=== PATIENT | male | born 1930 | race African-American/Black ===

== ENCOUNTER 2017-03-11 12:35 | Inpatient (IN) | payer MEDICARE ==
[2017-03-11] VITALS (7 sets, daily range): BP systolic 107–137; BP diastolic 60–71; PULSE 58–91; RESP 13–19; TEMP 97.8–98.2; O2SAT 99–100
[~2017-03-11] VITALS: Ht 181.6 cm; Wt 78.0 kg
[~2017-03-11 12:35] MED LIST: ASPI81TA21 PO; ATOR40TA49 PO; CLOP75 PO; FERR325T PO; MAXZ25 PO; OMEP20TA39 PO; TAB-TAB PO
--- NOTE | 2017-03-11 12:46 | PD ---
Physical Exam Date Seen by Provider: Mar 11, 2017 Time Seen by Provider: 12:44 Data Data Last Documented VS Vital Signs Date Time Temp Pulse Resp B/P Pulse Ox O2 Delivery O2 Flow Rate FiO2 03/11/17 12:37 97.9 91 15 137/65 100 MDM Supervised Visit with AARON: No Narrative Course 86 YO M with complaint of anemia. Patient had labs drawn yesterday with [facility]. Patient unsure if he takes blood thinners. Denies dark stool. Vitals reviewed. Patient seen in triage. Awaiting bed placement. Mignon Bullock Mar 11, 2017 12:46
--- NOTE | 2017-03-11 12:54 | PD ---
HPI . Low hemoglobin Chief Complaint: Abnormal Results Time Seen by Provider: 12:50 Travel History International Travel<30 days: No Contact w/Intl Traveler<30days: No Traveled to known affect area: No History of Present Illness HPI 86-year-old male with history of hypertension, hyperlipidemia and some cardiac history that is unclear to him here after he was called by one of his doctors and told to come to the emergency department for low hemoglobin. Patient says that he was called and told his hemoglobin was 5 and was told to come to the emergency department. He denies any melena or hematochezia. He denies any acute episodes of shortness of breath or fatigue. Patient said he had a long- standing history of intermittent shortness of breath for greater than 6 months, however has not worsened. He thinks he may take some blood thinners, but is uncertain of all of the names of his medications. He is a poor historian and has some difficulty telling me his medical history. PCP Dr. [facility] Past Medical History Hx Anticoagulant Therapy: Yes Cardiovascular Problems: Yes Hypertension: Yes Social History Alcohol Use: No Tobacco Use: No Allergies-Medications (Allergen,Severity, Reaction): Coded Allergies: No Known Allergies (Unverified , 03/11/17) Reported Meds & Prescriptions Reported Meds & Active Scripts Active Reported Multiple Vitamin 1 Tab 1 Tab PO DAILY Triamterene-Hydrochlorothiazide 37.5-25 Mg Tab 1 Tab PO DAILY Atorvastatin (Atorvastatin Calcium) 40 Mg Tab 40 Mg PO HS Plavix (Clopidogrel Bisulfate) 75 Mg Tab 75 Mg PO DAILY Aspirin Adult Low Strength (Aspirin) 81 Mg Tabdr 81 Mg PO DAILY Lansoprazole 30 Mg Capdr 30 Mg PO DAILY Review of Systems ROS Limitations: Poor Historian General / Constitutional: No: Fever Eyes: No: Visual changes HENT: No: Headaches Cardiovascular: No: Chest Pain or Discomfort Respiratory: No: Shortness of Breath Gastrointestinal: No: Abdominal Pain Genitourinary: No: Dysuria Musculoskeletal: No: Pain Skin: No Rash Neurologic: No: Weakness Psychiatric: No: Depression Endocrine: No: Polydipsia Hematologic/Lymphatic: No: Easy Bruising Physical Exam Narrative GENERAL: AAO x 3, no acute distress, Well-nourished, well-developed patient. SKIN: Warm and dry. No visible rashes or bruising. Slight pallor and pale conjunctiva HEAD: Normocephalic and atraumatic. EYES: No scleral icterus. No injection or drainage. EOM intact, PERRLA ENT: No nasal drainage noted. Mucous membranes pink. Airway patent. NECK: Supple, trachea midline. No JVD. CARDIOVASCULAR: Regular rate and rhythm without murmurs, gallops, or rubs. RESPIRATORY: Breath sounds equal bilaterally. No accessory muscle use. No rhonchi or rales. GASTROINTESTINAL: Abdomen soft, non-tender, nondistended. RECTAL: Lorraine INFANTE present, no gross abn on inspection, + guaiac EXTREMITIES: No cyanosis or edema. BACK: Nontender without obvious deformity. No CVA tenderness. NEURO: CN II-12 intact, title abstractor strength normal b/l, UE and LE 5/5, no focal deficits PSYCH: AAO x 3, normal affect. Data Data Last Documented VS Vital Signs Date Time Temp Pulse Resp B/P Pulse Ox O2 Delivery O2 Flow Rate FiO2 03/11/17 13:04 100 Room Air 03/11/17 12:37 97.9 91 15 137/65 Orders Complete Blood Count With Diff (03/11/17 12:55) Comprehensive Metabolic Panel (03/11/17 12:55) Prothrombin Time / Inr (Pt) (03/11/17 12:55) Act Partial Throm Time (Ptt) (03/11/17 12:55) Ecg Monitoring (03/11/17 12:55) Iv Access Insert/Monitor (03/11/17 12:55) Oximetry (03/11/17 12:55) Sodium Chloride 0.9% Flush (Ns Flush) (03/11/17 13:00) Type And Screen (03/11/17 13:45) Red Blood Cells (Rbc) (03/11/17 13:45) Blood Product Administration .UPON TRANSFUSION (03/11/17 13:45) Sodium Chlor 0.9% 250 Ml Inj (Ns 250 Ml (03/11/17 13:45) Admit To Inpatient (03/11/17 ) Code Status (03/11/17 14:15) Vital Signs (Adult) Q4H (03/11/17 14:15) Activity Oob With Assistance (03/11/17 14:15) Call Or Contact Centre Team Leader / Telemetry .CONTINUOUS (03/11/17 14:15) Diet Heart Healthy (03/11/17 Dinner) Sodium Chloride 0.9% Flush (Ns Flush) (03/11/17 14:15) Sodium Chloride 0.9% Flush (Ns Flush) (03/11/17 21:00) Acetaminophen (Tylenol) (03/11/17 15:00) Ondansetron Inj (Zofran Inj) (03/11/17 15:00) Basic Metabolic Panel (Bmp) (03/12/17 06:00) Chest, Single Ap (03/11/17 14:15) Electrocardiogram (03/11/17 14:15) Resp Oxygen Lauri C Titrat 1-4 L (03/11/17 ) Pt Request For Service (03/11/17 14:15) Scd Bilateral/Knee High DEYVI.BID (03/11/17 14:15) Naloxone Inj (Narcan Inj) (03/11/17 14:15) Magnesium Hydroxide Liq (Milk Of Magnesi (03/11/17 15:00) Inpatient Certification (03/11/17 ) Complete Blood Count With Diff (03/11/17 14:17) Complete Blood Count With Diff (03/12/17 14:17) Complete Blood Count With Diff (03/13/17 14:17) Complete Blood Count With Diff (03/14/17 14:17) Atorvastatin (Lipitor) (03/11/17 21:00) Triamterene-Hctz 37.5-25 Mg (Maxzide 37. (03/12/17 09:00) Multivitamin (Theragran) (03/12/17 09:00) Pantoprazole Inj (Protonix Inj) (03/11/17 15:00) Consult Gastroenterology (03/11/17 ) Admit Order (Ed Use Only) (03/11/17 14:32) Labs Laboratory Tests Test 03/11/17 13:04 White Blood Count 4.3 TH/MM3 Red Blood Count 3.01 MIL/MM3 Hemoglobin 5.6 GM/DL Hematocrit 19.5 % Mean Corpuscular Volume 64.8 FL Mean Corpuscular Hemoglobin 18.6 PG Mean Corpuscular Hemoglobin 28.6 % Concent Red Cell Distribution Width 19.6 % Platelet Count 316 TH/MM3 Mean Platelet Volume 6.9 FL Neutrophils (%) (Auto) 65.9 % Lymphocytes (%) (Auto) 20.8 % Monocytes (%) (Auto) 9.9 % Eosinophils (%) (Auto) 2.8 % Basophils (%) (Auto) 0.6 % Neutrophils # (Auto) 2.9 TH/MM3 Lymphocytes # (Auto) 0.9 TH/MM3 Monocytes # (Auto) 0.4 TH/MM3 Eosinophils # (Auto) 0.1 TH/MM3 Basophils # (Auto) 0.0 TH/MM3 CBC Comment DIFF FINAL Differential Comment Prothrombin Time 11.6 SEC Prothromb Time International 1.0 RATIO Ratio Activated Partial 26.6 SEC Thromboplast Time Sodium Level 137 MEQ/L Potassium Level 3.7 MEQ/L Chloride Level 105 MEQ/L Carbon Dioxide Level 25.0 MEQ/L Anion Gap 7 MEQ/L Blood Urea Nitrogen 14 MG/DL Creatinine 0.97 MG/DL Estimat Glomerular Filtration 89 ML/MIN Rate Random Glucose 113 MG/DL Calcium Level 8.3 MG/DL Total Bilirubin 0.4 MG/DL Aspartate Amino Transf 16 U/L (AST/SGOT) Alanine Aminotransferase 19 U/L (ALT/SGPT) Alkaline Phosphatase 77 U/L Total Protein 7.5 GM/DL Albumin 3.5 GM/DL [facility] Medical Decision Making Medical Screen Exam Complete: Yes Emergency Medical Condition: Yes Medical Record Reviewed: Yes Differential Diagnosis Anemia, upper GI bleed, lower GI bleed, malignancy Narrative Course 86-year-old male here after being told by one of his doctors that he has a low hemoglobin. Examination was unremarkable except for slight pallor on exam, pale conjunctiva as well as positive bedside guaiac. Laboratory Tests Test 03/11/17 13:04 White Blood Count 4.3 TH/MM3 Red Blood Count 3.01 MIL/MM3 Hemoglobin 5.6 GM/DL Hematocrit 19.5 % Mean Corpuscular Volume 64.8 FL Mean Corpuscular Hemoglobin 18.6 PG Mean Corpuscular Hemoglobin 28.6 % Concent Red Cell Distribution Width 19.6 % Platelet Count 316 TH/MM3 Mean Platelet Volume 6.9 FL Neutrophils (%) (Auto) 65.9 % Lymphocytes (%) (Auto) 20.8 % Monocytes (%) (Auto) 9.9 % Eosinophils (%) (Auto) 2.8 % Basophils (%) (Auto) 0.6 % Neutrophils # (Auto) 2.9 TH/MM3 Lymphocytes # (Auto) 0.9 TH/MM3 Monocytes # (Auto) 0.4 TH/MM3 Eosinophils # (Auto) 0.1 TH/MM3 Basophils # (Auto) 0.0 TH/MM3 CBC Comment DIFF FINAL Differential Comment Prothrombin Time 11.6 SEC Prothromb Time International 1.0 RATIO Ratio Activated Partial 26.6 SEC Thromboplast Time Sodium Level 137 MEQ/L Potassium Level 3.7 MEQ/L Chloride Level 105 MEQ/L Carbon Dioxide Level 25.0 MEQ/L Anion Gap 7 MEQ/L Blood Urea Nitrogen 14 MG/DL Creatinine 0.97 MG/DL Estimat Glomerular Filtration 89 ML/MIN Rate Random Glucose 113 MG/DL Calcium Level 8.3 MG/DL Total Bilirubin 0.4 MG/DL Aspartate Amino Transf 16 U/L (AST/SGOT) Alanine Aminotransferase 19 U/L (ALT/SGPT) Alkaline Phosphatase 77 U/L Total Protein 7.5 GM/DL Albumin 3.5 GM/DL Hemoglobin 5.6. Patient appears to have a GI bleed. Packed red blood cells have been ordered. Will transfuse with 2 units here in the emergency department and hold 2 units. I've requested a call back for admission. I discussed the results with the patient and the need for admission. Patient was agreeable to recommendations. Patient tells me that he is overdue for colonoscopy and was schedules for one within the next several weeks. Unfortunately he does not recall the name of any of his medical providers other than his primary care provider. Case has been discussed with Dr. Wilson, who has also seen the patient. 1431: case discussed with Dr. Nj. He will resume care of this patient. Diagnosis Primary Impression: Anemia Qualified Code: D64.9 - Anemia, unspecified type Additional Impression: GI bleed Qualified Code: K92.2 - Gastrointestinal hemorrhage, unspecified gastrointestinal hemorrhage type Admitting Information Admitting Physician Requests: Admit Condition: Stable Mena Walton Mar 11, 2017 12:54
[2017-03-11 12:56] LABS: MEAN CORPUSCULAR HGB CONC 28.6 % (32.0-36.0)
[2017-03-11] MEDS ORDERED: SODIUM CHLORIDE 0.9% FLUSH 10 ML FLUSH IVF PRN (13:00)
[2017-03-11] MEDS ORDERED: ASPI1TAB91 PO (13:10)
[2017-03-11] MEDS ORDERED: TRIA37.5 PO (13:10)
[2017-03-11] MEDS ORDERED: LANS30CA PO (13:10)
[2017-03-11] MEDS ORDERED: PLAV75TA29 PO (13:10)
[2017-03-11] MEDS ORDERED: ATOR40TA16 PO (13:10)
[2017-03-11] MEDS ORDERED: MULTTAB67 PO (13:11)
[2017-03-11 13:34] LABS: AUTOMATED NEUTROPHIL # 2.9 TH/MM3 (1.8-7.7); BASOPHIL % 0.6 % (0.0-2.0); EOSINOPHIL # 0.1 TH/MM3 (0-0.4); EOSINOPHIL % 2.8 % (0.0-4.0); LYMPH % 20.8 % (9.0-44.0); LYMPHOCYTE # 0.9 TH/MM3 (1.0-4.8); MEAN CELL VOLUME 64.8 FL (80.0-100.0); MEAN CORPUSCULAR HEMOGLOBIN 18.6 PG (27.0-34.0); MONO % 9.9 % (0.0-8.0); NEUT % 65.9 % (16.0-70.0); PLATELET COUNT 316 TH/MM3 (150-450); RED BLOOD COUNT 3.01 MIL/MM3 (4.50-5.90); RED CELL DISTRIBUTION WIDTH 19.6 % (11.6-17.2); WHITE BLOOD COUNT 4.3 TH/MM3 (4.0-11.0)
[2017-03-11 13:39] LABS: HEMO FLAGS DIFF FINAL
[2017-03-11 13:42] LABS: HEMATOCRIT 19.5 % (39.0-51.0)
[2017-03-11 13:45] LABS: APTT (PATIENT) 26.6 SEC (24.3-30.1); PROTHROMBIN TIME - PATIENT 11.6 SEC (9.8-11.6)
[2017-03-11] MEDS ORDERED: SODIUM CHLOR 0.9% 250 ML INJ 250 ML IV ONE (13:45)
[2017-03-11 13:49] LABS: ANION GAP 7 MEQ/L (5-15); AST (GOT) 16 U/L (15-37); BLOOD UREA NITROGEN 14 MG/DL (7-18); CHLORIDE 105 MEQ/L (98-107); GLOMERULAR FILTRATION RATE 89 ML/MIN (>89); POTASSIUM 3.7 MEQ/L (3.5-5.1); SODIUM (NA) 137 MEQ/L (136-145)
[2017-03-11 13:54] LABS: ALKALINE PHOSPHATASE 77 U/L (45-117); ALT (GPT) 19 U/L (12-78); TOTAL BILIRUBIN ADULT 0.4 MG/DL (0.2-1.0)
[2017-03-11] MEDS ORDERED: SODIUM CHLORIDE 0.9% FLUSH 10 ML FLUSH IV FLUSH PRN (14:15)
[2017-03-11] MEDS ORDERED: NALOXONE HCL 0.4 MG/ML AMP IV PRN (14:15)
[2017-03-11 14:19] LABS: MEAN CORPUSCULAR HGB CONC 28.9 % (32.0-36.0)
--- NOTE | 2017-03-11 14:41 | PD ---
Data Data Last Documented VS Vital Signs Date Time Temp Pulse Resp B/P Pulse Ox O2 Delivery O2 Flow Rate FiO2 03/11/17 13:04 100 Room Air 03/11/17 12:37 97.9 91 15 137/65 Orders Complete Blood Count With Diff (03/11/17 12:55) Comprehensive Metabolic Panel (03/11/17 12:55) Prothrombin Time / Inr (Pt) (03/11/17 12:55) Act Partial Throm Time (Ptt) (03/11/17 12:55) Ecg Monitoring (03/11/17 12:55) Iv Access Insert/Monitor (03/11/17 12:55) Oximetry (03/11/17 12:55) Sodium Chloride 0.9% Flush (Ns Flush) (03/11/17 13:00) Type And Screen (03/11/17 13:45) Red Blood Cells (Rbc) (03/11/17 13:45) Blood Product Administration .UPON TRANSFUSION (03/11/17 13:45) Sodium Chlor 0.9% 250 Ml Inj (Ns 250 Ml (03/11/17 13:45) Admit To Inpatient (03/11/17 ) Code Status (03/11/17 14:15) Vital Signs (Adult) Q4H (03/11/17 14:15) Activity Oob With Assistance (03/11/17 14:15) Marketing Director Assisted Living / Telemetry .CONTINUOUS (03/11/17 14:15) Diet Heart Healthy (03/11/17 Dinner) Sodium Chloride 0.9% Flush (Ns Flush) (03/11/17 14:15) Sodium Chloride 0.9% Flush (Ns Flush) (03/11/17 21:00) Acetaminophen (Tylenol) (03/11/17 15:00) Ondansetron Inj (Zofran Inj) (03/11/17 15:00) Basic Metabolic Panel (Bmp) (03/12/17 06:00) Chest, Single Ap (03/11/17 14:15) Electrocardiogram (03/11/17 14:15) Resp Oxygen Lauri C Titrat 1-4 L (03/11/17 ) Pt Request For Service (03/11/17 14:15) Scd Bilateral/Knee High DEYVI.BID (03/11/17 14:15) Naloxone Inj (Narcan Inj) (03/11/17 14:15) Magnesium Hydroxide Liq (Milk Of Magnesi (03/11/17 15:00) Inpatient Certification (03/11/17 ) Complete Blood Count With Diff (03/11/17 14:17) Complete Blood Count With Diff (03/12/17 14:17) Complete Blood Count With Diff (03/13/17 14:17) Complete Blood Count With Diff (03/14/17 14:17) Atorvastatin (Lipitor) (03/11/17 21:00) Triamterene-Hctz 37.5-25 Mg (Maxzide 37. (03/12/17 09:00) Multivitamin (Theragran) (03/12/17 09:00) Pantoprazole Inj (Protonix Inj) (03/11/17 15:00) Consult Gastroenterology (03/11/17 ) Admit Order (Ed Use Only) (03/11/17 14:32) Labs Laboratory Tests Test 03/11/17 13:04 White Blood Count 4.3 TH/MM3 Red Blood Count 3.01 MIL/MM3 Hemoglobin 5.6 GM/DL Hematocrit 19.5 % Mean Corpuscular Volume 64.8 FL Mean Corpuscular Hemoglobin 18.6 PG Mean Corpuscular Hemoglobin 28.6 % Concent Red Cell Distribution Width 19.6 % Platelet Count 316 TH/MM3 Mean Platelet Volume 6.9 FL Neutrophils (%) (Auto) 65.9 % Lymphocytes (%) (Auto) 20.8 % Monocytes (%) (Auto) 9.9 % Eosinophils (%) (Auto) 2.8 % Basophils (%) (Auto) 0.6 % Neutrophils # (Auto) 2.9 TH/MM3 Lymphocytes # (Auto) 0.9 TH/MM3 Monocytes # (Auto) 0.4 TH/MM3 Eosinophils # (Auto) 0.1 TH/MM3 Basophils # (Auto) 0.0 TH/MM3 CBC Comment DIFF FINAL Differential Comment Prothrombin Time 11.6 SEC Prothromb Time International 1.0 RATIO Ratio Activated Partial 26.6 SEC Thromboplast Time Sodium Level 137 MEQ/L Potassium Level 3.7 MEQ/L Chloride Level 105 MEQ/L Carbon Dioxide Level 25.0 MEQ/L Anion Gap 7 MEQ/L Blood Urea Nitrogen 14 MG/DL Creatinine 0.97 MG/DL Estimat Glomerular Filtration 89 ML/MIN Rate Random Glucose 113 MG/DL Calcium Level 8.3 MG/DL Total Bilirubin 0.4 MG/DL Aspartate Amino Transf 16 U/L (AST/SGOT) Alanine Aminotransferase 19 U/L (ALT/SGPT) Alkaline Phosphatase 77 U/L Total Protein 7.5 GM/DL Albumin 3.5 GM/DL [facility] Supervised Visit with AARON: Yes Narrative Course The history, exam, and medical decision-making in the associated mid-level provider note were completed with my assistance. I reviewed and agree with the findings presented. I attest that I had a [id number] encounter with the patient on the same day, and personally performed and documented my assessment and findings in the medical record. *My assessment and Findings: Send 86-year-old man who presents emergent part referred from his primary doctor for abnormal labs. He was told he had a hemoglobin of 5. He got routine labs done yesterday. He's been having a little bit of lightheadedness and dyspnea on exertion. He has not noticed any blood in his stool. He had colon cancer couple years ago and had some anemia that time her car transfusion but no recent trouble. He thinks he last had labs polyuria or so ago. He looks pale. He otherwise feels fine. His a benign exam. He is guaiac positive. Patient's hemoglobin is in the fives. He'll be admitted for transfusion and further evaluation. Diagnosis Primary Impression: Anemia Qualified Code: D64.9 - Anemia, unspecified type Additional Impression: GI bleed Qualified Code: K92.2 - Gastrointestinal hemorrhage, unspecified gastrointestinal hemorrhage type Condition: Wiley Young MD Mar 11, 2017 14:41
--- NOTE | 2017-03-11 14:54 | RADRPT ---
EXAM DATE/TIME: 03/11/2017 14:17 [place] COMPARISON: No previous studies available for comparison. INDICATIONS : Shortness of breath. Abnormal blood work. MEDICAL HISTORY : Hypertension. SURGICAL HISTORY : None. ENCOUNTER: Initial ACUITY: 2 days PAIN SCORE: 0/10 LOCATION: Bilateral chest FINDINGS: No infiltrate, effusion or pneumothorax demonstrated. Heart size normal. Thoracic aorta is tortuous. CONCLUSION: No acute cardiopulmonary disease demonstrated. Tortuous thoracic aorta. Michael Henriquez MD on March 11, 2017 at 14:53 Board Certified Radiologist. This report was verified electronically.
[2017-03-11] MEDS ORDERED: MAGNESIUM HYDROXIDE SUSP 30 ML CUP PO PRN (15:00)
[2017-03-11] MEDS ORDERED: ONDANSETRON HCL 4 MG/2 ML VIAL IVP PRN (15:00)
[2017-03-11] MEDS ORDERED: ACETAMINOPHEN 325 MG TAB PO PRN (15:00)
[2017-03-11] MEDS: PANTOPRAZOLE SODIUM 40 MG VIAL IV PUSH SCH (15:41)
--- NOTE | 2017-03-11 15:49 | PD.CONS ---
HPI History of Present Illness This is a pleasant 86 year old AA male with history of hypertension, hyperlipidemia, PVD who was sent here for abnormal out patient labs, hgb of 5. He denies any GI issues including vomiting, hematemesis, abdomen pain, GERD, diarrhea, constipation, change in bowels, melena or hematochezia. He reports shortness of breath and fatigue for a while. Patient is poor historian and not sure of name of home medications. Reviewing his home meds, patient is on Plavix , and ASA. States he had blood transfusion 4 yrs ago. Last colonoscopy was > than 5 yrs ago. Upon arrival, hgb 5.6. 4 units of blood ordered. This is significant drop compared to hgb of 12 last year. He tells me he was scheduled next month to see Dr. Reich for possible colonoscopy (María Merchant) PFSH Past Medical History HTN PVD hyperlipidemia Past Surgical History cardiac cath (María Merchant) Coded Allergies: No Known Allergies (Unverified , 03/11/17) Medications Current Medications Medications (Trade) Dose Ordered Sig/Flor Route Start Time Stop Time Status Last Admin Sodium Chloride 2 ml 2 ml UNSCH PRN IVF 03/11/17 13:00 (NS 250 ml Inj) 250 ml @ 15 mls/hr ONCE ONCE IV 03/11/17 13:45 03/12/17 06:24 03/11/17 15:04 (NS Flush) 2 ml UNSCH PRN IV FLUSH 03/11/17 14:15 (NS Flush) 2 ml BID IV FLUSH 03/11/17 21:00 (Tylenol) 650 mg Q4H PRN PO 03/11/17 15:00 (Zofran Inj) 4 mg Q6H PRN IVP 03/11/17 15:00 (Narcan Inj) 0.4 mg UNSCH PRN IV 03/11/17 14:15 (Milk Of Magnesia Liq) 30 ml Q12HR PRN PO 03/11/17 15:00 (Lipitor) 40 mg HS PO 03/11/17 21:00 (Maxzide 37.5-25 Mg) 1 tab DAILY PO 03/12/17 09:00 (Theragran) 1 tab DAILY PO 03/12/17 09:00 (Protonix Inj) 40 mg Q24H IV PUSH 03/11/17 15:00 Family History No family hx of colon cancer Social History No alcohol No smoking No illicit drug use (María Merchant) Review of Systems Constitutional: COMPLAINS OF: Fatigue Endocrine: DENIES: Polyuria Eyes: DENIES: Double Vision Ears, nose, mouth, throat: DENIES: Hoarseness Respiratory: COMPLAINS OF: Shortness of breath Cardiovascular: DENIES: Claudication Gastrointestinal: DENIES: Abdominal pain, Black stools, Bloody stools, Constipation, Diarrhea, Nausea, Vomiting, Difficulty Swallowing, Anorexia, Swelling of Abdomen, Heartburn, Hematemesis Genitourinary: DENIES: Hematuria Musculoskeletal: DENIES: Neck pain Integumentary: DENIES: Jaundice Hematologic/lymphatic: DENIES: Bruising Immunologic/allergic: DENIES: Eczema Neurologic: DENIES: Abnormal gait Psychiatric: DENIES: Anxiety (María Merchant) GI Exam Vitals I&O Vital Signs Date Time Temp Pulse Resp B/P Pulse Ox O2 Delivery O2 Flow Rate FiO2 03/11/17 15:24 98.1 59 16 133/63 100 Room Air 03/11/17 15:05 97.9 61 13 117/64 100 Room Air 03/11/17 13:04 100 Room Air 03/11/17 12:37 97.9 91 15 137/65 100 Imaging Last Impressions Chest X-Ray 03/11/17 1415 Signed Impressions: Service Date/Time: Saturday, March 11, 2017 14:17 - CONCLUSION: No acute cardiopulmonary disease demonstrated. Tortuous thoracic aorta. Michael Henriquez MD Laboratory Test 03/11/17 03/11/17 13:04 13:50 White Blood Count 4.3 TH/MM3 Red Blood Count 3.01 MIL/MM3 Hemoglobin 5.6 GM/DL Hematocrit 19.5 % Mean Corpuscular Volume 64.8 FL Mean Corpuscular Hemoglobin 18.6 PG Mean Corpuscular Hemoglobin 28.6 % Concent Red Cell Distribution Width 19.6 % Platelet Count 316 TH/MM3 Mean Platelet Volume 6.9 FL Neutrophils (%) (Auto) 65.9 % Lymphocytes (%) (Auto) 20.8 % Monocytes (%) (Auto) 9.9 % Eosinophils (%) (Auto) 2.8 % Basophils (%) (Auto) 0.6 % Neutrophils # (Auto) 2.9 TH/MM3 Lymphocytes # (Auto) 0.9 TH/MM3 Monocytes # (Auto) 0.4 TH/MM3 Eosinophils # (Auto) 0.1 TH/MM3 Basophils # (Auto) 0.0 TH/MM3 CBC Comment DIFF FINAL Differential Comment Prothrombin Time 11.6 SEC Prothromb Time International 1.0 RATIO Ratio Activated Partial 26.6 SEC Thromboplast Time Sodium Level 137 MEQ/L Potassium Level 3.7 MEQ/L Chloride Level 105 MEQ/L Carbon Dioxide Level 25.0 MEQ/L Anion Gap 7 MEQ/L Blood Urea Nitrogen 14 MG/DL Creatinine 0.97 MG/DL Estimat Glomerular Filtration 89 ML/MIN Rate Random Glucose 113 MG/DL Calcium Level 8.3 MG/DL Total Bilirubin 0.4 MG/DL Aspartate Amino Transf 16 U/L (AST/SGOT) Alanine Aminotransferase 19 U/L (ALT/SGPT) Alkaline Phosphatase 77 U/L Total Protein 7.5 GM/DL Albumin 3.5 GM/DL Blood Type O POSITIVE Antibody Screen NEGATIVE Crossmatch Leukocyte-Reduced Red Blood Cells Blood Bank Comment Physical Examination HEENT: normocephalic; atraumatic; no jaundice. NECK: Neck is supple, no JVD, no lymphadenopathy. CHEST: Chest is clear to auscultation and percussion. CARDIAC: Regular rate and rhythm with no murmur gallop or rubs. ABDOMEN: Soft, nondistended, nontender; no hepatosplenomegaly; bowel sounds are present in all four quadrants. EXTREMITIES: No clubbing, cyanosis, or edema. SKIN: Normal; no rash; no jaundice. COPPER PLATER: No focal deficits; alert and oriented times three. (María Merchant) Assessment and Plan Plan - Profound anemia, microcytic/hypochromic, hgb 5 - He denies any GI issues including vomiting, hematemesis, abdomen pain, GERD, diarrhea, constipation, change in bowels, melena or hematochezia. He reports shortness of breath and fatigue for a while. patient is on Plavix, and ASA. States he had blood transfusion 4 yrs ago. Last colonoscopy was > than 5 yrs ago. Upon arrival, hgb 5.6. 4 units of blood ordered, repeat labs pending. This is significant drop compared to hgb of 12 last year. He tells me he was scheduled next month to see Dr. Reich for possible colonoscopy. PPI - PVD, HTN per attending - anticoagulation use- Plavix on hold Plan: - Heart healthy diet - EGD/colonoscopy on Monday - Clear liquids tomorrow - Golytely tomorrow - Monitor hh - Transfuse as needed - Cont. PPI - Cont. to hold Plavix - Supportive care - Patient seen and examined by Dr. Reich and myself and this note is written on her behalf. (María Merchant) Physician Comments seen, examined agree with above if active bleeding, endoscopy on emergency (Martha Reich MD) María Merchant Mar 11, 2017 15:48 Martha Reich MD Mar 11, 2017 16:13
[2017-03-11 15:55] LABS: AUTOMATED NEUTROPHIL # 2.4 TH/MM3 (1.8-7.7); BASOPHIL % 0.7 % (0.0-2.0); EOSINOPHIL # 0.1 TH/MM3 (0-0.4); EOSINOPHIL % 3.3 % (0.0-4.0); LYMPH % 26.2 % (9.0-44.0); LYMPHOCYTE # 1.1 TH/MM3 (1.0-4.8); MEAN CELL VOLUME 64.7 FL (80.0-100.0); MEAN CORPUSCULAR HEMOGLOBIN 18.7 PG (27.0-34.0); MONO % 11.4 % (0.0-8.0); NEUT % 58.4 % (16.0-70.0); PLATELET COUNT 293 TH/MM3 (150-450); RED BLOOD COUNT 2.76 MIL/MM3 (4.50-5.90); RED CELL DISTRIBUTION WIDTH 19.6 % (11.6-17.2)
[2017-03-11 15:59] LABS: HEMO FLAGS DIFF FINAL
[2017-03-11 16:02] LABS: HEMATOCRIT 17.8 % (39.0-51.0)
--- NOTE | 2017-03-11 17:16 | HHI.HP ---
HPI Service [facility] Hospitalists Primary Care Physician Ajith Shields MD Admission Diagnosis anemia/GI bleed Travel History International Travel<30 Days: No Contact w/Intl Traveler <30 Da: No Traveled to Known Affected Are: No Past Family Social History Allergies: Coded Allergies: No Known Allergies (Unverified , 03/11/17) Physical Exam Vital Signs Vital Signs Date Time Temp Pulse Resp B/P Pulse Ox O2 Delivery O2 Flow Rate FiO2 03/11/17 16:45 97.8 58 19 132/60 100 03/11/17 15:24 98.1 59 16 133/63 100 Room Air 03/11/17 15:05 97.9 61 13 117/64 100 Room Air 03/11/17 13:04 100 Room Air 03/11/17 12:37 97.9 91 15 137/65 100 Physical Exam GENERAL: This is a well-nourished, well-developed patient, in no apparent distress. SKIN: No rashes, ecchymoses or lesions. Cool and dry. HEAD: Atraumatic. Normocephalic. No temporal or scalp tenderness. EYES: Pupils equal round and reactive. Extraocular motions intact. No scleral icterus. No injection or drainage. ENT: Nose without bleeding, purulent drainage or septal hematoma. Throat without erythema, tonsillar hypertrophy or exudate. Uvula midline. Airway patent. NECK: Trachea midline. No JVD or lymphadenopathy. Supple, nontender, no meningeal signs. CARDIOVASCULAR: Regular rate and rhythm without murmurs, gallops, or rubs. RESPIRATORY: Clear to auscultation. Breath sounds equal bilaterally. No wheezes , rales, or rhonchi. GASTROINTESTINAL: Abdomen soft, non-tender, nondistended. No hepato-splenomegaly , or palpable masses. No guarding. MUSCULOSKELETAL: Extremities without clubbing, cyanosis, or edema. No joint tenderness, effusion, or edema noted. No calf tenderness. Negative Homans sign bilaterally. NEUROLOGICAL: Awake and alert. Cranial nerves II through XII intact. Motor and sensory grossly within normal limits. Five out of 5 muscle strength in all muscle groups. Normal speech. Laboratory Laboratory Tests Test 03/11/17 03/11/17 03/11/17 13:04 13:50 15:05 White Blood Count 4.3 4.0 Red Blood Count 3.01 2.76 Hemoglobin 5.6 5.1 Hematocrit 19.5 17.8 Mean Corpuscular Volume 64.8 64.7 Mean Corpuscular Hemoglobin 18.6 18.7 Mean Corpuscular Hemoglobin 28.6 28.9 Concent Red Cell Distribution Width 19.6 19.6 Platelet Count 316 293 Mean Platelet Volume 6.9 6.9 Neutrophils (%) (Auto) 65.9 58.4 Lymphocytes (%) (Auto) 20.8 26.2 Monocytes (%) (Auto) 9.9 11.4 Eosinophils (%) (Auto) 2.8 3.3 Basophils (%) (Auto) 0.6 0.7 Neutrophils # (Auto) 2.9 2.4 Lymphocytes # (Auto) 0.9 1.1 Monocytes # (Auto) 0.4 0.5 Eosinophils # (Auto) 0.1 0.1 Basophils # (Auto) 0.0 0.0 CBC Comment DIFF FINAL DIFF FINAL Differential Comment Prothrombin Time 11.6 Prothromb Time International 1.0 Ratio Activated Partial 26.6 Thromboplast Time Sodium Level 137 Potassium Level 3.7 Chloride Level 105 Carbon Dioxide Level 25.0 Anion Gap 7 Blood Urea Nitrogen 14 Creatinine 0.97 Estimat Glomerular Filtration 89 Rate Random Glucose 113 Calcium Level 8.3 Total Bilirubin 0.4 Aspartate Amino Transf 16 (AST/SGOT) Alanine Aminotransferase 19 (ALT/SGPT) Alkaline Phosphatase 77 Total Protein 7.5 Albumin 3.5 Blood Type O POSITIVE Antibody Screen NEGATIVE Crossmatch Leukocyte-Reduced Red Blood Cells Blood Bank Comment Result Diagram: 03/11/17 1505 03/11/17 1304 Physician Certification Order for Inpatient Services The services are ordered in accordance with Medicare regulations or non- Medicare payer requirements, as applicable. In the case of services not specified as inpatient-only, they are appropriately provided as inpatient services in accordance with the 2-midnight benchmark. days is the estimated time the patient will need to remain in the hospital, assuming treatment plan goals are met and no additional complications. Juancarlos Nj DO Mar 11, 2017 17:16
[2017-03-11] MEDS: SODIUM CHLORIDE 0.9% FLUSH 10 ML FLUSH IV FLUSH SCH (20:36)
[2017-03-11] MEDS: ATORVASTATIN 40 MG TAB PO SCH (20:36)
[2017-03-11 21:00] LABS: MEAN CORPUSCULAR HGB CONC 29.4 % (32.0-36.0)
[2017-03-12] VITALS (13 sets, daily range): BP systolic 114–142; BP diastolic 57–70; PULSE 59–71; RESP 16–20; TEMP 97.9–98.3; O2SAT 96–99
--- NOTE | 2017-03-12 01:15 | HHI.HP ---
HPI Service [facility] Hospitalists Primary Care Physician Ajith Shields MD Admission Diagnosis anemia/GI bleed Chief Complaint: dizziness, HARTLEY, and fatigue Travel History International Travel<30 Days: No Contact w/Intl Traveler <30 Da: No Traveled to Known Affected Are: No History of Present Illness Pt is a pleasant 86 y/o M with h/o chronic anemia, HTN, and PVD. Pt saw his PCP , Dr. Ramirez, on 03/10/17 with c/o occasional dizziness without falls, HARTLEY, and generalized fatigue worsening over the las few weeks. Pt had blood work performed and pt's Hg was found to be 5.9 (03/10/17). Pt was sent to the [facility] ER. Pt denies BRB per rectum. Pt denies tarry stools. Pt denies vomiting or hematemesis. Pt denies easy bruising or bleeding. Pt denied chest pain or palpitations. EGD [address] Hawthorne showed GERD, distal esophageal stricture, and hiatal hernia. Colonoscopy [address] Hawthorne was significant for large internal hemorrhoids. Repeat Hg (03/12/17) was 5.1 ER physician orders 2 units PRBCs. Pt was admitted to [place] for further evaluation and treatment. Review of Systems Constitutional: DENIES: Diaphoretic episodes, Fatigue, Fever, Weight gain, Weight loss, Chills, Dizziness, Change in appetite, Night Sweats Endocrine: DENIES: Heat/cold intolerance, Polydipsia, Polyuria, Polyphagia Eyes: DENIES: Blurred vision, Diplopia, Eye inflammation, Eye pain, Vision loss , Photosensitivity, Double Vision Ears, nose, mouth, throat: DENIES: Tinnitus, Hearing loss, Vertigo, Nasal discharge, Oral lesions, Throat pain, Hoarseness, Ear Pain, Running Nose, Epistaxis, Sinus Pain, Toothache, Odynophagia Respiratory: COMPLAINS OF: Shortness of breath, DENIES: Apneas, Cough, Snoring , Wheezing, Hemoptysis, Sputum production Cardiovascular: DENIES: Chest pain, Palpitations, Syncope, Dyspnea on Exertion , PND, Lower Extremity Edema, Orthopnea, Claudication Gastrointestinal: DENIES: Abdominal pain, Black stools, Bloody stools, BRB per rectum, Constipation, Diarrhea, GERD, Nausea, Reflux, Vomiting, Difficulty Swallowing, Anorexia Genitourinary: DENIES: Urinary frequency, Urinary incontinence, Urgency, Hematuria, Dysuria, Nocturia Musculoskeletal: DENIES: Joint pain, Muscle aches, Stiffness, Joint Swelling, Back pain, Neck pain Integumentary: DENIES: Abnormal pigmentation, Nail changes, Pruritus, Rash Hematologic/lymphatic: DENIES: Bruising, Lymphadenopathy Immunologic/allergic: DENIES: Eczema, Urticaria Neurologic: DENIES: Abnormal gait, Headache, Localized weakness, Paresthesias, Seizures, Speech Problems, Tremor, Poor Balance Psychiatric: DENIES: Anxiety, Confusion, Mood changes, Depression, Hallucinations, Agitation, Suicidal Ideation, Homicidal Ideation, Delusions, History of Bipolar, History of Schizophrenia Past Family Social History Past Medical History 1) HTN 2) PVD - s/p LE revascularization studies with Dr. Hernandez 3) GERD 4) tortuous aorta 5) chronic anemia 6) hyperlipidemia Past Surgical History 1) EPS 02/2016, negative study 2) EGD/Colonoscopy with Dr. Hawthorne 2015 Reported Medications Reported Meds & Active Scripts Active Reported Multiple Vitamin 1 Tab 1 Tab PO DAILY Triamterene-Hydrochlorothiazide 37.5-25 Mg Tab 1 Tab PO DAILY Atorvastatin (Atorvastatin Calcium) 40 Mg Tab 40 Mg PO HS Plavix (Clopidogrel Bisulfate) 75 Mg Tab 75 Mg PO DAILY Aspirin Adult Low Strength (Aspirin) 81 Mg Tabdr 81 Mg PO DAILY Lansoprazole 30 Mg Capdr 30 Mg PO DAILY Allergies: Coded Allergies: No Known Allergies (Unverified , 03/11/17) Family History Noncontributory Social History - - former smoker - NO etoh - NO illicit street drugs Physical Exam Vital Signs Vital Signs Date Time Temp Pulse Resp B/P Pulse Ox O2 Delivery O2 Flow Rate FiO2 03/11/17 20:00 98.2 73 16 107/71 99 03/11/17 20:00 Room Air 03/11/17 18:23 63 14 130/62 99 03/11/17 16:45 97.8 58 19 132/60 100 03/11/17 15:24 98.1 59 16 133/63 100 Room Air 03/11/17 15:05 97.9 61 13 117/64 100 Room Air 03/11/17 13:04 100 Room Air 03/11/17 12:37 97.9 91 15 137/65 100 Physical Exam GENERAL: This is a well-nourished, well-developed patient, in no apparent distress. SKIN: No rashes, ecchymoses or lesions. Cool and dry. HEAD: Atraumatic. Normocephalic. No temporal or scalp tenderness. EYES: Pupils equal round and reactive. Extraocular motions intact. No scleral icterus. No injection or drainage. ENT: Nose without bleeding, purulent drainage or septal hematoma. Throat without erythema, tonsillar hypertrophy or exudate. Uvula midline. Airway patent. NECK: Trachea midline. No JVD or lymphadenopathy. Supple, nontender, no meningeal signs. CARDIOVASCULAR: Regular rate and rhythm without murmurs, gallops, or rubs. RESPIRATORY: Clear to auscultation. Breath sounds equal bilaterally. No wheezes , rales, or rhonchi. GASTROINTESTINAL: Abdomen soft, non-tender, nondistended. No hepato-splenomegaly , or palpable masses. No guarding. MUSCULOSKELETAL: Extremities without clubbing, cyanosis, or edema. No joint tenderness, effusion, or edema noted. No calf tenderness. Negative Homans sign bilaterally. NEUROLOGICAL: Awake and alert. Cranial nerves II through XII intact. Motor and sensory grossly within normal limits. Five out of 5 muscle strength in all muscle groups. Normal speech. Laboratory Laboratory Tests Test 03/11/17 03/11/17 03/11/17 13:04 13:50 15:05 White Blood Count 4.3 4.0 Red Blood Count 3.01 2.76 Hemoglobin 5.6 5.1 Hematocrit 19.5 17.8 Mean Corpuscular Volume 64.8 64.7 Mean Corpuscular Hemoglobin 18.6 18.7 Mean Corpuscular Hemoglobin 28.6 28.9 Concent Red Cell Distribution Width 19.6 19.6 Platelet Count 316 293 Mean Platelet Volume 6.9 6.9 Neutrophils (%) (Auto) 65.9 58.4 Lymphocytes (%) (Auto) 20.8 26.2 Monocytes (%) (Auto) 9.9 11.4 Eosinophils (%) (Auto) 2.8 3.3 Basophils (%) (Auto) 0.6 0.7 Neutrophils # (Auto) 2.9 2.4 Lymphocytes # (Auto) 0.9 1.1 Monocytes # (Auto) 0.4 0.5 Eosinophils # (Auto) 0.1 0.1 Basophils # (Auto) 0.0 0.0 CBC Comment DIFF FINAL DIFF FINAL Differential Comment Prothrombin Time 11.6 Prothromb Time International 1.0 Ratio Activated Partial 26.6 Thromboplast Time Sodium Level 137 Potassium Level 3.7 Chloride Level 105 Carbon Dioxide Level 25.0 Anion Gap 7 Blood Urea Nitrogen 14 Creatinine 0.97 Estimat Glomerular Filtration 89 Rate Random Glucose 113 Calcium Level 8.3 Total Bilirubin 0.4 Aspartate Amino Transf 16 (AST/SGOT) Alanine Aminotransferase 19 (ALT/SGPT) Alkaline Phosphatase 77 Total Protein 7.5 Albumin 3.5 Blood Type O POSITIVE Antibody Screen NEGATIVE Crossmatch Leukocyte-Reduced Red Blood Cells Blood Bank Comment Result Diagram: 03/11/17 1505 03/11/17 1304 Imaging Last Impressions Chest X-Ray 03/11/17 1415 Signed Impressions: Service Date/Time: Monday, March 11, 2017 14:17 - CONCLUSION: No acute cardiopulmonary disease demonstrated. Tortuous thoracic aorta. Michael Henriquez MD Septic Shock Reassessment Heart: Regular rate and rhythm Lungs: Clear Skin: Warm Peripheral Pulses: Bounding Right Radial Bounding Left Radial Bounding Right Popliteal Bounding Left Popliteal Bounding Right Dorsalis Pedis Bounding Left Dorsalis Pedis Bounding Right Posterior Tibial Bounding Left Posterior Tibial Capillary Refill: Brisk Assessment and Plan Problem List: (1) Anemia Status: Acute Plan: - acute anemia - pt is microcytic - iron studies were NOT obtain prior to transfusing 2 units PRBCs - pt denies BRB per rectum or tarry stools. NO vomiting or hematemesis - Pt does c/o recent dizziness without falls, HARTLEY, and fatigue - Hg 5.9 (03/10/17), 5/1 (03/11/17) - appreciate GI consultation, EGD/colonoscopy 03/14/17 - serial CBCs - anticipate pt will need further transfusion - pt may require Hematology consultation - hold ASA & plavix - PPI - SCD - supportive care (2) PVD (peripheral vascular disease) Status: Acute Plan: - s/p revascularization procedures with Dr. Hernandez - hold ASA and plavix (3) Third degree AV block Status: Acute Plan: - h/o negative EPS study with Dr. Salmon 02/2016 - EKG (03/11/17) --> first degree AV block (4) GERD (gastroesophageal reflux disease) Status: Chronic Plan: - PPI (5) HTN (hypertension) Status: Chronic Plan: - [facility] Physician Certification 2 Midnight Certification Type: Admission for Inpatient Services Order for Inpatient Services The services are ordered in accordance with Medicare regulations or non- Medicare payer requirements, as applicable. In the case of services not specified as inpatient-only, they are appropriately provided as inpatient services in accordance with the 2-midnight benchmark. Estimated LOS (days): 3 3 days is the estimated time the patient will need to remain in the hospital, assuming treatment plan goals are met and no additional complications. Post-Hospital Plan: Not yet determined Problem Qualifiers (1) Anemia: Qualified Code: D64.9 - Anemia, unspecified type (2) GERD (gastroesophageal reflux disease): Qualified Code: K21.9 - Gastroesophageal reflux disease, esophagitis presence not specified (3) HTN (hypertension): Qualified Code: I10 - Essential hypertension Juancarlos Nj DO Mar 12, 2017 01:15
[2017-03-12 07:07] LABS: BASOPHIL % 0.6 % (0.0-2.0); EOSINOPHIL # 0.2 TH/MM3 (0-0.4); EOSINOPHIL % 2.9 % (0.0-4.0); HEMATOCRIT 22.8 % (39.0-51.0); HEMO FLAGS DIFF FINAL; LYMPH % 19.4 % (9.0-44.0); LYMPHOCYTE # 1.1 TH/MM3 (1.0-4.8); MEAN CELL VOLUME 69.2 FL (80.0-100.0); MEAN CORPUSCULAR HEMOGLOBIN 21.9 PG (27.0-34.0); MEAN CORPUSCULAR HGB CONC 31.7 % (32.0-36.0); MONO % 7.9 % (0.0-8.0); NEUT % 69.2 % (16.0-70.0); PLATELET COUNT 249 TH/MM3 (150-450); RED CELL DISTRIBUTION WIDTH 24.3 % (11.6-17.2); WHITE BLOOD COUNT 5.7 TH/MM3 (4.0-11.0)
[2017-03-12] MEDS: MULTIVITAMIN TAB PO SCH (09:08)
[2017-03-12] MEDS: SODIUM CHLORIDE 0.9% FLUSH 10 ML FLUSH IV FLUSH SCH ×2 (09:08→21:09)
[2017-03-12] MEDS: TRIAMTERENE/HCTZ 37.5 MG/25 MG TAB PO SCH (09:08)
[2017-03-12] MEDS ORDERED: FUROSEMIDE 20 MG/2 ML VIAL IV PRN (13:00)
[2017-03-12] MEDS ORDERED: SODIUM CHLOR 0.9% 250 ML INJ 250 ML IV ONE (13:00)
--- NOTE | 2017-03-12 13:01 | HHI.PR ---
Subjective Remarks fatigue and SOB improving since admission and transfusion. NO new complaints today. Objective Vitals Vital Signs Date Time Temp Pulse Resp B/P Pulse Ox O2 Delivery O2 Flow Rate FiO2 03/12/17 12:28 98.2 59 20 126/58 98 03/12/17 09:05 60 03/12/17 09:05 Room Air 03/12/17 08:08 97.9 66 19 98 03/12/17 04:00 98.1 67 16 114/57 98 03/12/17 00:49 71 03/12/17 00:00 Room Air 03/12/17 00:00 98.3 66 16 115/60 98 03/11/17 20:00 98.2 73 16 107/71 99 03/11/17 20:00 Room Air 03/11/17 18:23 63 14 130/62 99 03/11/17 16:45 97.8 58 19 132/60 100 03/11/17 15:24 98.1 59 16 133/63 100 Room Air 03/11/17 15:05 97.9 61 13 117/64 100 Room Air 03/11/17 13:04 100 Room Air 03/11/17 03/11/17 03/12/17 15:00 23:00 07:00 Output Total 200 ml 200 ml Balance -200 ml -200 ml Output Urine Total 200 ml 200 ml Result Diagram: 03/12/17 0654 03/11/17 1304 Imaging Last Impressions Chest X-Ray 03/11/17 1415 Signed Impressions: Service Date/Time: Saturday, March 11, 2017 14:17 - CONCLUSION: No acute cardiopulmonary disease demonstrated. Tortuous thoracic aorta. Michael Henriquez MD A/P Problem List: (1) Anemia Status: Acute Plan: - comgmt with GI - acute anemia - pt is microcytic - iron studies were NOT obtain prior to transfusing 2 units PRBCs - pt denies BRB per rectum or tarry stools. NO vomiting or hematemesis - upon admission, pt c/o recent dizziness without falls, HARTLEY, and fatigue - Hg 5.9 (03/10/17), 5/1 (03/11/17), 7.2 (03/12/17) - Pt received transfusion of 2 units PRBCs (03/11/17) with improvement - will transfusion additional 2 units PRBCs today (03/12/17) - EGD/colonoscopy 03/14/17 - pt may require Hematology consultation - hold ASA & plavix - PPI - SCD - supportive care (2) PVD (peripheral vascular disease) Status: Acute Plan: - s/p revascularization procedures with Dr. Hernandez - hold ASA and plavix (3) Third degree AV block Status: Acute Plan: - h/o negative EPS study with Dr. Salmon 02/2016 - EKG (03/11/17) --> first degree AV block (4) GERD (gastroesophageal reflux disease) Status: Chronic Plan: - PPI (5) HTN (hypertension) Status: Chronic Plan: - stable - maxide Problem Qualifiers (1) Anemia: Qualified Code: D64.9 - Anemia, unspecified type (2) GERD (gastroesophageal reflux disease): Qualified Code: K21.9 - Gastroesophageal reflux disease, esophagitis presence not specified (3) HTN (hypertension): Qualified Code: I10 - Essential hypertension Juancarlos Nj DO Mar 12, 2017 13:01
--- NOTE | 2017-03-12 13:36 | HHI.GIFU ---
GI Follow-up Note Consult Follow-up Subjective: Patient laying in bed comfortably, feeling great.No nausea, vomiting .Tolerating diet well. Awaiting egd/colon in am Will receive additional 2 units of prbc Objective: PHYSICAL EXAMINATION: Vitals signs stable No fever Vital Signs Date Time Temp Pulse Resp B/P Pulse Ox O2 Delivery O2 Flow Rate FiO2 03/12/17 12:28 98.2 59 20 126/58 98 03/12/17 09:05 60 03/12/17 09:05 Room Air 03/12/17 08:08 97.9 66 19 98 HEENT: Pupils round and reactive to light; normocephalic; atraumatic; no jaundice. Throat is clear. NECK: Neck is supple, no JVD, no lymphadenopathy. CHEST: Chest is clear to auscultation and percussion. CARDIAC: Regular rate and rhythm with no murmur gallop or rubs. ABDOMEN: Soft, nondistended, nontender; no hepatosplenomegaly; bowel sounds are present in all four quadrants. EXTREMITIES: No clubbing, cyanosis, or edema. SKIN: Normal; no rash; no jaundice. LEAD MINER BLASTING: No focal deficits; alert and oriented times three. Available Data (labs, X- Rays, Procedues) : Laboratory Tests Test 03/11/17 03/11/17 03/11/17 03/12/17 13:04 13:50 15:05 06:54 White Blood Count 4.3 TH/MM3 4.0 TH/MM3 5.7 TH/MM3 Red Blood Count 3.01 MIL/MM3 2.76 MIL/MM3 3.30 MIL/MM3 Hemoglobin 5.6 GM/DL 5.1 GM/DL 7.2 GM/DL Hematocrit 19.5 % 17.8 % 22.8 % Mean Corpuscular Volume 64.8 FL 64.7 FL 69.2 FL Mean Corpuscular Hemoglobin 18.6 PG 18.7 PG 21.9 PG Mean Corpuscular Hemoglobin 28.6 % 28.9 % 31.7 % Concent Red Cell Distribution Width 19.6 % 19.6 % 24.3 % Platelet Count 316 TH/MM3 293 TH/MM3 249 TH/MM3 Mean Platelet Volume 6.9 FL 6.9 FL 7.0 FL Neutrophils (%) (Auto) 65.9 % 58.4 % 69.2 % Lymphocytes (%) (Auto) 20.8 % 26.2 % 19.4 % Monocytes (%) (Auto) 9.9 % 11.4 % 7.9 % Eosinophils (%) (Auto) 2.8 % 3.3 % 2.9 % Basophils (%) (Auto) 0.6 % 0.7 % 0.6 % Neutrophils # (Auto) 2.9 TH/MM3 2.4 TH/MM3 4.0 TH/MM3 Lymphocytes # (Auto) 0.9 TH/MM3 1.1 TH/MM3 1.1 TH/MM3 Monocytes # (Auto) 0.4 TH/MM3 0.5 TH/MM3 0.5 TH/MM3 Eosinophils # (Auto) 0.1 TH/MM3 0.1 TH/MM3 0.2 TH/MM3 Basophils # (Auto) 0.0 TH/MM3 0.0 TH/MM3 0.0 TH/MM3 CBC Comment DIFF FINAL DIFF FINAL DIFF FINAL Differential Comment Prothrombin Time 11.6 SEC Prothromb Time International 1.0 RATIO Ratio Activated Partial 26.6 SEC Thromboplast Time Sodium Level 137 MEQ/L Potassium Level 3.7 MEQ/L Chloride Level 105 MEQ/L Carbon Dioxide Level 25.0 MEQ/L Anion Gap 7 MEQ/L Blood Urea Nitrogen 14 MG/DL Creatinine 0.97 MG/DL Estimat Glomerular Filtration 89 ML/MIN Rate Random Glucose 113 MG/DL Calcium Level 8.3 MG/DL Total Bilirubin 0.4 MG/DL Aspartate Amino Transf 16 U/L (AST/SGOT) Alanine Aminotransferase 19 U/L (ALT/SGPT) Alkaline Phosphatase 77 U/L Total Protein 7.5 GM/DL Albumin 3.5 GM/DL Blood Type O POSITIVE Antibody Screen NEGATIVE Crossmatch Leukocyte-Reduced Red Blood Cells Blood Bank Comment ASSESSMENT/PLAN: anemia -new onset/microcytic -no indication of bleeding Recommendations egd/colonoscopy in am ct abdomen/pelvis monitor hb/ht transfuse prn to keep hb more than 8 It was a pleasure seeing Salty Mcclelland. Thank you for this consult. Entered by: Martha Hadley MD Mar 12, 2017 13:36
[2017-03-12 14:21] LABS: AUTOMATED NEUTROPHIL # 3.7 TH/MM3 (1.8-7.7); BASOPHIL % 0.5 % (0.0-2.0); EOSINOPHIL # 0.2 TH/MM3 (0-0.4); EOSINOPHIL % 2.9 % (0.0-4.0); HEMATOCRIT 26.9 % (39.0-51.0); HEMO FLAGS DIFF FINAL; LYMPHOCYTE # 1.3 TH/MM3 (1.0-4.8); MEAN CELL VOLUME 71.2 FL (80.0-100.0); MEAN CORPUSCULAR HEMOGLOBIN 20.9 PG (27.0-34.0); MONO % 7.4 % (0.0-8.0); NEUT % 65.2 % (16.0-70.0); PLATELET COUNT 289 TH/MM3 (150-450); RED BLOOD COUNT 3.78 MIL/MM3 (4.50-5.90); RED CELL DISTRIBUTION WIDTH 24.1 % (11.6-17.2); WHITE BLOOD COUNT 5.6 TH/MM3 (4.0-11.0)
[2017-03-12 14:29] LABS: POTASSIUM 3.6 MEQ/L (3.5-5.1)
[2017-03-12] MEDS ORDERED: DIATRIZOATE MEGLUM/DIATRIZOATE SOD 9 ML CUP PO ONE (14:45)
[2017-03-12] MEDS: PANTOPRAZOLE SODIUM 40 MG VIAL IV PUSH SCH (15:00)
[2017-03-12] MEDS ORDERED: PEG (High)/E-LYTE SOLN 4000 ML BTL PO ONE (16:00)
--- NOTE | 2017-03-12 17:27 | EKG ---
Date Performed: 03/11/2017 Time Performed: 15:17:53 PTAGE: 86 years EKG: SINUS BRADYCARDIA WITH FIRST DEGREE AV BLOCK ABNORMAL ECG Since PREVIOUS TRACING , no significant change noted PREVIOUS TRACIN02/18/2016 12.33 DOCTOR: Joshua Mckeon Interpretating Date/Time 03/12/2017 17:26:18
[2017-03-12 19:16] LABS: AUTOMATED NEUTROPHIL # 3.6 TH/MM3 (1.8-7.7); BASOPHIL # 0.1 TH/MM3 (0-0.2); EOSINOPHIL # 0.2 TH/MM3 (0-0.4); HEMATOCRIT 30.9 % (39.0-51.0); LYMPH % 19.2 % (9.0-44.0); MEAN CELL VOLUME 72.4 FL (80.0-100.0); MEAN CORPUSCULAR HEMOGLOBIN 23.1 PG (27.0-34.0); NEUT % 68.8 % (16.0-70.0); PLATELET COUNT 265 TH/MM3 (150-450); RED BLOOD COUNT 4.27 MIL/MM3 (4.50-5.90); RED CELL DISTRIBUTION WIDTH 25.3 % (11.6-17.2); WHITE BLOOD COUNT 5.2 TH/MM3 (4.0-11.0)
[2017-03-12 19:22] LABS: HEMO FLAGS AUTO DIFF
[2017-03-12 20:01] LABS: SCAN/DIFF AUTO DIFF CONFIRMED
[2017-03-12] MEDS ORDERED: IOHEXOL 350 MG/ML 10 ML VIAL (for RAD DIAG) IV ONE (20:27)
--- NOTE | 2017-03-12 21:00 | RADRPT ---
EXAM DATE/TIME: 03/12/2017 20:20 [place] COMPARISON: No previous studies available for comparison. INDICATIONS : General weakness. IV CONTRAST: 94 cc Omnipaque 350 (iohexol) IV ORAL CONTRAST: Prescribed oral contrast ingested. RADIATION DOSE: 9.96 CTDIvol (mGy) MEDICAL HISTORY : Hypertension. SURGICAL HISTORY : None. ENCOUNTER: Initial ACUITY: 1 day PAIN SCALE: 0/10 LOCATION: Bilateral abdomen TECHNIQUE: Volumetric scanning of the abdomen and pelvis was performed. Using automated exposure control and ad justment of the mA and/or kV according to patient size, radiation dose was kept as low as reasonably achievable to obtain optimal diagnostic quality images. DICOM format image data is available electro nically for review and comparison. FINDINGS: Lung bases demonstrate minimal basal atelectasis and scarring. Mild fatty liver. No acute findings in the liver, spleen, adrenals, kidneys or pancreas. Calcified ga llstone in gallbladder. No free fluid. No bowel obstruction. No adenopathy. There is mild constipation. Atherosclerotic aorta without significant aneurysm. No acute bony abnormalities. Probable pars defect at the lumbosacral j unction. 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 Small hiatal hernia. CONCLUSION: 1. No acute findings within the abdomen and pelvis. Mild constipation. Calcified gallstone without du ctal dilatation. 2. Advanced degenerative change in lower lumbar spine with canal stenosis. Small hiatal hernia. No ob struction, free fluid or free air. Shoaib Power MD on March 12, 2017 at 20:54 Board Certified Radiologist. This report was verified electronically.
[2017-03-12] MEDS: ATORVASTATIN 40 MG TAB PO SCH (21:10)
[2017-03-13] VITALS (9 sets, daily range): BP systolic 117–143; BP diastolic 67–73; PULSE 53–72; RESP 16–20; TEMP 97.7–98.6; O2SAT 95–98
[2017-03-13 07:57] LABS: AUTOMATED NEUTROPHIL # 4.4 TH/MM3 (1.8-7.7); BASOPHIL % 0.4 % (0.0-2.0); EOSINOPHIL # 0.2 TH/MM3 (0-0.4); EOSINOPHIL % 2.5 % (0.0-4.0); HEMATOCRIT 30.4 % (39.0-51.0); LYMPH % 20.1 % (9.0-44.0); LYMPHOCYTE # 1.3 TH/MM3 (1.0-4.8); MEAN CELL VOLUME 71.5 FL (80.0-100.0); MEAN CORPUSCULAR HEMOGLOBIN 22.7 PG (27.0-34.0); MEAN CORPUSCULAR HGB CONC 31.8 % (32.0-36.0); MONO % 9.3 % (0.0-8.0); NEUT % 67.7 % (16.0-70.0); PLATELET COUNT 265 TH/MM3 (150-450); RED BLOOD COUNT 4.26 MIL/MM3 (4.50-5.90); RED CELL DISTRIBUTION WIDTH 25.8 % (11.6-17.2); WHITE BLOOD COUNT 6.4 TH/MM3 (4.0-11.0)
[2017-03-13 08:03] LABS: HEMO FLAGS AUTO DIFF
[2017-03-13] MEDS: TRIAMTERENE/HCTZ 37.5 MG/25 MG TAB PO SCH (08:29)
[2017-03-13] MEDS: MULTIVITAMIN TAB PO SCH (08:29)
[2017-03-13] MEDS: SODIUM CHLORIDE 0.9% FLUSH 10 ML FLUSH IV FLUSH SCH ×2 (08:29→20:54)
[2017-03-13 08:39] LABS: OVALOCYTES 1+ (NORMAL); SCAN/DIFF AUTO DIFF CONFIRMED
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
[2017-03-13] MEDS ORDERED: PROPOFOL 200 MG/20 ML AMP IV ONE (13:11)
--- NOTE | 2017-03-13 14:04 | HHI.GIFU ---
Subjective Remarks EGD performed. 5 AVMs, one bleed when ablated with bipolar and clip was placed. Located in proximal stomach, some inside hiatal hernia. All ablated. Biopsy taken from stomach, for gastritis. Colonoscopy showed two AVMs at cecum. Ablated with bipolar probe. Otherwise normal. Objective Vitals I&O Vital Signs Date Time Temp Pulse Resp B/P Pulse Ox O2 Delivery O2 Flow Rate FiO2 03/13/17 12:00 98.3 67 18 126/73 97 03/13/17 09:00 64 03/13/17 08:00 Room Air 03/13/17 08:00 98.2 69 20 137/70 97 03/13/17 07:37 95 21 03/13/17 04:00 98.5 66 18 117/68 96 03/13/17 04:00 Room Air 03/13/17 00:00 Room Air 03/13/17 00:00 98.1 68 18 139/67 98 03/12/17 20:00 98.1 65 20 142/60 99 03/12/17 20:00 Room Air 03/12/17 20:00 68 03/12/17 17:44 99 21 03/12/17 16:46 97.9 60 16 141/70 99 03/12/17 16:08 98.3 62 20 134/70 96 03/12/17 15:20 98.0 61 16 118/59 98 03/12/17 14:41 98.2 66 16 118/67 99 I/O 03/12/17 03/12/17 03/12/17 03/13/17 03/13/17 03/13/17 06:59 14:59 22:59 06:59 14:59 22:59 Intake Total 960 ml 1080 ml 0 ml Output Total 200 ml 500 ml 1900 ml 800 ml Balance -200 ml 460 ml -820 ml -800 ml Intake Oral 960 ml 1080 ml 0 ml Output Urine Total 200 ml 500 ml 1900 ml 800 ml # Bowel Movements 1 0 2 Laboratory Laboratory Tests Test 03/12/17 03/13/17 18:50 07:05 White Blood Count 5.2 6.4 Red Blood Count 4.27 4.26 Hemoglobin 9.9 9.7 Hematocrit 30.9 30.4 Mean Corpuscular Volume 72.4 71.5 Mean Corpuscular Hemoglobin 23.1 22.7 Mean Corpuscular Hemoglobin 32.0 31.8 Concent Red Cell Distribution Width 25.3 25.8 Platelet Count 265 265 Mean Platelet Volume 6.9 7.3 Neutrophils (%) (Auto) 68.8 67.7 Lymphocytes (%) (Auto) 19.2 20.1 Monocytes (%) (Auto) 6.0 9.3 Eosinophils (%) (Auto) 4.0 2.5 Basophils (%) (Auto) 2.0 0.4 Neutrophils # (Auto) 3.6 4.4 Lymphocytes # (Auto) 1.0 1.3 Monocytes # (Auto) 0.3 0.6 Eosinophils # (Auto) 0.2 0.2 Basophils # (Auto) 0.1 0.0 CBC Comment AUTO DIFF AUTO DIFF Differential Comment AUTO DIFF AUTO DIFF CONFIRMED CONFIRMED Ovalocytes 1+ Physical Exam HEENT: Pupils round and reactive to light; normocephalic; atraumatic; no jaundice. Throat is clear. NECK: Neck is supple, no JVD, no lymphadenopathy. CHEST: Chest is clear to auscultation and percussion. CARDIAC: Regular rate and rhythm with no murmur gallop or rubs. ABDOMEN: Soft, nondistended, nontender; no hepatosplenomegaly; bowel sounds are present in all four quadrants. EXTREMITIES: No clubbing, cyanosis, or edema. SKIN: Normal; no rash; no jaundice. 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 Assessment and Plan Plan - Profound anemia, microcytic/hypochromic, hgb 5 - He denies any GI issues including vomiting, hematemesis, abdomen pain, GERD, diarrhea, constipation, change in bowels, melena or hematochezia. He reports shortness of breath and fatigue for a while. patient is on Plavix, and ASA. States he had blood transfusion 4 yrs ago. Last colonoscopy was > than 5 yrs ago. Upon arrival, hgb 5.6. 4 units of blood ordered, repeat labs pending. This is significant drop compared to hgb of 12 last year. He tells me he was scheduled next month to see Dr. Reich for possible colonoscopy. PPI - PVD, HTN per attending - anticoagulation use- Plavix on hold EGD with ablation of AVMs and colonoscopy with ablation of avms performed. No complication. One clip applied in the stomach for bleeding from cauterized AVM. No ulcerations or erosion. Plan: Full liquid diet. Increase PPI to bid. Hold off on plavix and anticoagulation if possible for 5-7 days. Morgan Jimenez MD Mar 13, 2017 14:04
[2017-03-13 17:08] LABS: AUTOMATED NEUTROPHIL # 4.8 TH/MM3 (1.8-7.7); BASOPHIL % 0.4 % (0.0-2.0); EOSINOPHIL # 0.1 TH/MM3 (0-0.4); HEMATOCRIT 32.2 % (39.0-51.0); LYMPH % 17.7 % (9.0-44.0); LYMPHOCYTE # 1.2 TH/MM3 (1.0-4.8); MEAN CELL VOLUME 73.6 FL (80.0-100.0); MEAN CORPUSCULAR HEMOGLOBIN 22.8 PG (27.0-34.0); MONO % 9.7 % (0.0-8.0); NEUT % 70.2 % (16.0-70.0); PLATELET COUNT 269 TH/MM3 (150-450); RED BLOOD COUNT 4.37 MIL/MM3 (4.50-5.90); RED CELL DISTRIBUTION WIDTH 25.9 % (11.6-17.2); WHITE BLOOD COUNT 6.9 TH/MM3 (4.0-11.0)
[2017-03-13 17:22] LABS: HEMO FLAGS AUTO DIFF
[2017-03-13 18:03] LABS: KERATOCYTES OCC (NORMAL); OVALOCYTES 2+ (NORMAL); PLATELET ESTIMATE SMEAR NORMAL (NORMAL); PLATELET MORPHOLOGY NORMAL (NORMAL); SCAN/DIFF AUTO DIFF CONFIRMED
[2017-03-13] MEDS: ATORVASTATIN 40 MG TAB PO SCH (20:53)
[2017-03-13] MEDS: PANTOPRAZOLE SODIUM 40 MG VIAL IV PUSH SCH (20:53)
[2017-03-14 00:45] VITALS: BP 123/63; PULSE 73; RESP 16; TEMP 99.2; O2SAT 96
[2017-03-14 04:52] VITALS: BP 109/55; PULSE 78; RESP 16; TEMP 98.6; O2SAT 96
[2017-03-14 08:00] VITALS: BP 145/64; PULSE 76; RESP 18; TEMP 98.8; O2SAT 96
[2017-03-14] MEDS: MULTIVITAMIN TAB PO SCH (08:34)
[2017-03-14] MEDS: TRIAMTERENE/HCTZ 37.5 MG/25 MG TAB PO SCH (08:34)
[2017-03-14] MEDS: PANTOPRAZOLE SODIUM 40 MG VIAL IV PUSH SCH (08:35)
[2017-03-14] MEDS: SODIUM CHLORIDE 0.9% FLUSH 10 ML FLUSH IV FLUSH SCH (08:36)
--- NOTE | 2017-03-14 08:57 | HHI.PR ---
Subjective Remarks no bleeding. kasia liquid diet. Objective Vitals heart reg lung cta abd s/nt ext no edema Vital Signs Date Time Temp Pulse Resp B/P Pulse Ox O2 Delivery O2 Flow Rate FiO2 03/14/17 08:00 98.8 76 18 145/64 96 03/14/17 04:52 98.6 78 16 109/55 96 03/14/17 04:00 Room Air 03/14/17 00:45 99.2 73 16 123/63 96 03/14/17 00:00 Room Air 03/13/17 20:55 98.6 72 16 128/69 97 03/13/17 20:00 Room Air 03/13/17 20:00 67 03/13/17 16:40 Room Air 03/13/17 16:00 97.7 53 18 143/67 98 03/13/17 14:25 98.2 61 18 122/70 100 03/13/17 14:05 98.1 61 18 108/60 99 03/13/17 14:05 98.1 61 18 108/60 99 Room Air 03/13/17 12:00 98.3 67 18 126/73 97 03/13/17 09:00 64 03/13/17 03/13/17 03/14/17 15:00 23:00 07:00 Intake Total 0 ml 840 ml 120 ml Output Total 200 ml Balance 0 ml 840 ml -80 ml Intake Oral 0 ml 840 ml 120 ml Output Urine Total 200 ml # Voids 2 3 # Bowel Movements 0 0 0 Result Diagram: 03/13/17 1649 03/12/17 1258 Imaging Last Impressions Chest X-Ray 03/11/17 1415 Signed Impressions: Service Date/Time: Saturday, March 11, 2017 14:17 - CONCLUSION: No acute cardiopulmonary disease demonstrated. Tortuous thoracic aorta. Michael Henriquez MD A/P Problem List: (1) Anemia Status: Acute Plan: - comgmt with GI - acute anemia - pt is microcytic - iron studies were NOT obtain prior to transfusing 2 units PRBCs - pt denies BRB per rectum or tarry stools. NO vomiting or hematemesis - upon admission, pt c/o recent dizziness without falls, HARTLEY, and fatigue - Hg 5.9 (03/10/17), 5/1 (03/11/17), 7.2 (03/12/17) - Pt received transfusion of 2 units PRBCs (03/11/17) with improvement - additional 2 units (03/12/17) - EGD/colonoscopy 03/13...5 gastric avm...cauterized with one bleeding and clipped. ....2 avm in colon discussed with GI 03/13....liquids and observe overnight for any bleeding diet advancement today and dc when ok with GI updated pt/ bid ppi. hold asa/plavix x 5 days per GI (2) AVM (arteriovenous malformation) Status: Acute Plan: see above (3) PVD (peripheral vascular disease) Status: Acute Plan: - s/p revascularization procedures with Dr. Hernandez - holding ASA and plavix (4) Third degree AV block Status: Acute Plan: - h/o negative EPS study with Dr. Salmon 02/2016 - EKG (03/11/17) --> first degree AV block (5) GERD (gastroesophageal reflux disease) Status: Chronic Plan: - PPI (6) HTN (hypertension) Status: Chronic Plan: - stable - maxide Problem Qualifiers (1) Anemia: Qualified Code: D64.9 - Anemia, unspecified type (2) GERD (gastroesophageal reflux disease): Qualified Code: K21.9 - Gastroesophageal reflux disease, esophagitis presence not specified (3) HTN (hypertension): Qualified Code: I10 - Essential hypertension Wagner Cote MD Mar 14, 2017 08:57
[2017-03-14] MEDS ORDERED: PROT40TA PO (08:59)
--- NOTE | 2017-03-14 08:59 | HHI.DCPOC ---
Discharge Care Plan Diagnosis: (1) AVM (arteriovenous malformation) (2) GI bleed (3) Anemia (4) Third degree AV block (5) PVD (peripheral vascular disease) (6) GERD (gastroesophageal reflux disease) (7) HTN (hypertension) Goals to Promote Your Health * To prevent worsening of your condition and complications * To maintain your health at the optimal level Directions to Meet Your Goals Take your medications as prescribed Follow your dietary instruction Follow activity as directed Keep your appointments as scheduled Take your immunizations and boosters as scheduled If your symptoms worsen call your PCP, if no PCP go to Urgent Care Center or Emergency Room Smoking is Dangerous to Your Health. Avoid second hand smoke Call the 24-hour hour crisis hotline for domestic abuse at Wagner Cote MD Mar 14, 2017 08:59
[2017-03-14 09:00] VITALS: PULSE 66
[2017-03-14 12:00] VITALS: BP 107/64; PULSE 91; RESP 20; TEMP 98.9; O2SAT 99
[2017-03-14] MEDS ORDERED: ASPI1TAB91 PO (12:14)
[2017-03-14] MEDS ORDERED: PLAV75TA29 PO (12:14)
--- NOTE | 2017-03-14 12:17 | HHI.DS ---
Discharge Summary Admission Date Mar 11, 2017 at 14:34 Discharge Date: Mar 14, 2017 Admitting Diagnosis anemia/GI bleed (1) Anemia Diagnosis: Principal (2) AVM (arteriovenous malformation) Diagnosis: Principal (3) PVD (peripheral vascular disease) Diagnosis: Secondary (4) Third degree AV block Diagnosis: Secondary (5) GERD (gastroesophageal reflux disease) Diagnosis: Secondary (6) HTN (hypertension) Diagnosis: Secondary Brief History Pt is a pleasant 86 y/o M with h/o chronic anemia, HTN, and PVD. Pt saw his PCP , Dr. Ramirez, on 03/10/17 with c/o occasional dizziness without falls, HARTLEY, and generalized fatigue worsening over the las few weeks. Pt had blood work performed and pt's Hg was found to be 5.9 (03/10/17). Pt was sent to the [facility] ER. Pt denies BRB per rectum. Pt denies tarry stools. Pt denies vomiting or hematemesis. Pt denies easy bruising or bleeding. Pt denied chest pain or palpitations. EGD [address] Hawthorne showed GERD, distal esophageal stricture, and hiatal hernia. Colonoscopy [address] Hawthorne was significant for large internal hemorrhoids. Repeat Hg (03/12/17) was 5.1 ER physician orders 2 units PRBCs. Pt was admitted to [place] for further evaluation and treatment. CBC/BMP: 03/13/17 1649 03/12/17 1258 Significant Findings Laboratory Tests Test 03/11/17 03/11/17 03/12/17 03/12/17 13:04 15:05 06:54 12:58 Red Blood Count 3.01 MIL/MM3 2.76 MIL/MM3 3.30 MIL/MM3 (4.50-5.90) (4.50-5.90) (4.50-5.90) Hemoglobin 5.6 GM/DL 5.1 GM/DL 7.2 GM/DL (13.0-17.0) (13.0-17.0) (13.0-17.0) Hematocrit 19.5 % 17.8 % 22.8 % (39.0-51.0) (39.0-51.0) (39.0-51.0) Mean Corpuscular Volume 64.8 FL 64.7 FL 69.2 FL (80.0-100.0) (80.0-100.0) (80.0-100.0) Mean Corpuscular Hemoglobin 18.6 PG 18.7 PG 21.9 PG (27.0-34.0) (27.0-34.0) (27.0-34.0) Mean Corpuscular Hemoglobin 28.6 % 28.9 % 31.7 % Concent (32.0-36.0) (32.0-36.0) (32.0-36.0) Red Cell Distribution Width 19.6 % 19.6 % 24.3 % (11.6-17.2) (11.6-17.2) (11.6-17.2) Mean Platelet Volume 6.9 FL 6.9 FL (7.0-11.0) (7.0-11.0) Monocytes (%) (Auto) 9.9 % (0.0-8.0) 11.4 % (0.0-8.0) Lymphocytes # (Auto) 0.9 TH/MM3 (1.0-4.8) Random Glucose 113 MG/DL 67 MG/DL (74-106) (74-106) Calcium Level 8.3 MG/DL (8.5-10.1) Test 03/12/17 03/12/17 03/13/17 03/13/17 13:43 18:50 07:05 16:49 Red Blood Count 3.78 MIL/MM3 4.27 MIL/MM3 4.26 MIL/MM3 4.37 MIL/MM3 (4.50-5.90) (4.50-5.90) (4.50-5.90) (4.50-5.90) Hemoglobin 7.9 GM/DL 9.9 GM/DL 9.7 GM/DL 10.0 GM/DL (13.0-17.0) (13.0-17.0) (13.0-17.0) (13.0-17.0) Hematocrit 26.9 % 30.9 % 30.4 % 32.2 % (39.0-51.0) (39.0-51.0) (39.0-51.0) (39.0-51.0) Mean Corpuscular Volume 71.2 FL 72.4 FL 71.5 FL 73.6 FL (80.0-100.0) (80.0-100.0) (80.0-100.0) (80.0-100.0) Mean Corpuscular Hemoglobin 20.9 PG 23.1 PG 22.7 PG 22.8 PG (27.0-34.0) (27.0-34.0) (27.0-34.0) (27.0-34.0) Mean Corpuscular Hemoglobin 29.4 % 31.8 % 31.0 % Concent (32.0-36.0) (32.0-36.0) (32.0-36.0) Red Cell Distribution Width 24.1 % 25.3 % 25.8 % 25.9 % (11.6-17.2) (11.6-17.2) (11.6-17.2) (11.6-17.2) Mean Platelet Volume 6.9 FL 6.9 FL (7.0-11.0) (7.0-11.0) Monocytes (%) (Auto) 9.3 % (0.0-8.0) 9.7 % (0.0-8.0) Ovalocytes 1+ (NORMAL) 2+ (NORMAL) Neutrophils (%) (Auto) 70.2 % (16.0-70.0) Hospital Course (1) Anemia Status: Acute Plan: - comgmt with GI - acute anemia- pt is microcytic - iron studies were NOT obtain prior to transfusing 2 units PRBCs - pt denies BRB per rectum or tarry stools. NO vomiting or hematemesis - upon admission, pt c/o recent dizziness without falls, HARTLEY, and fatigue - Hg 5.9 (03/10/17), 5/1 (03/11/17), 7.2 (03/12/17) - Pt received transfusion of 2 units PRBCs (03/11/17) with improvement - additional 2 units (03/12/17) - EGD/colonoscopy 03/13...5 gastric avm...cauterized with one bleeding and clipped. ....2 avm in colon discussed with GI 03/13....liquids and observe overnight for any bleeding diet advancement today and dc when ok with GI. No sign of bleeding updated pt/ bid ppi. hold asa/plavix x 5 days per GI (2) AVM (arteriovenous malformation) Status: Acute Plan: see above (3) PVD (peripheral vascular disease) Status: Acute Plan: - s/p revascularization procedures with Dr. Hernandez - holding ASA and plavix (4) Third degree AV block Status: Acute Plan: - h/o negative EPS study with Dr. Salmon 02/2016 - EKG (03/11/17) --> first degree AV block (5) GERD (gastroesophageal reflux disease) Status: Chronic Plan: - PPI (6) HTN (hypertension) Status: Chronic Plan: - stable - maxide Pt Condition on Discharge: Stable Discharge Disposition: Discharge Home Discharge Instructions DIET: Follow Instructions for: Soft Diet Activities you can perform: Regular-No Restrictions Follow up Referrals: Gastroenterology - [address] flynn PCP Follow-up - [address] bazzi New Medications: Pantoprazole (Protonix) 40 Mg Tab 40 MG PO BID gastric AVMs #60 Ref 0 TAB Changed Medications: Aspirin DR (Aspirin Adult Low Strength) 81 Mg Tabdr 81 MG PO DAILY resume this drug on 03/19 pad #0 TAB (Medication details modified) Clopidogrel (Plavix) 75 Mg Tab 75 MG PO DAILY resume this drug on 03/19 Blood Clot Prevention #0 Ref 0 TAB ( Changed from: 30) Continued Medications: Atorvastatin (Atorvastatin) 40 Mg Tab 40 MG PO HS Cholesterol Management #30 Ref 0 TAB Multiple Vitamin (Multiple Vitamin) 1 Tab 1 TAB PO DAILY Nutritional Supplement Ref 0 TAB Triamterene-Hydrochlorothiazide (Triamterene-Hydrochlorothiazide) 37.5-25 Mg Tab 1 TAB PO DAILY #30 Ref 0 TAB Discontinued Medications: Lansoprazole (Lansoprazole) 30 Mg Capdr 30 MG PO DAILY Ref 0 Wagner Campuzano MD Mar 14, 2017 12:16
== END 2017-03-14 15:04 | disposition home or self-care (01) | DRG 378 ==
LOC: NEPE 12:35 → NEDA 14:34 → N04A 15:50
PROVIDERS: ADMIT Hospitalist; ATTEND Hospitalist
PROC: 30233N1 Transfusion of Nonautologous Red Blood Cells into Peripheral Vein, Percutaneous Approach (ICD-10-PCS; principal; 2017-03-11)
PROC: 0W3P8ZZ Control Bleeding in Gastrointestinal Tract, Via Natural or Artificial Opening Endoscopic (ICD-10-PCS; 2017-03-13)
PROC: 0DB68ZX Excision of Stomach, Via Natural or Artificial Opening Endoscopic, Diagnostic (ICD-10-PCS; 2017-03-13)
PROC: 0D5H8ZZ Destruction of Cecum, Via Natural or Artificial Opening Endoscopic (ICD-10-PCS; 2017-03-13)
PROC: 0D568ZZ Destruction of Stomach, Via Natural or Artificial Opening Endoscopic (ICD-10-PCS; 2017-03-13 13:03)
DX: K92.2 Gastrointestinal hemorrhage, unspecified (principal); I44.2 Atrioventricular block, complete; I73.9 Peripheral vascular disease, unspecified; Q27.33 Arteriovenous malformation of digestive system vessel; D50.9 Iron deficiency anemia, unspecified; K21.0 Gastro-esophageal reflux disease with esophagitis; I10 Essential (primary) hypertension; E78.5 Hyperlipidemia, unspecified; K64.8 Other hemorrhoids; Z85.038 Personal history of other malignant neoplasm of large intestine
CPT/HCPCS: 36430; 71010; 74177; 80048; 80053; 85025; 85610; 85730; 86850; 86900; 86901; 86920; 88305; 88312; 93005; C9113; J1940; J7050; P9016; Q9963; Q9967